=== PATIENT | female | born 1950 | race Caucasian/White ===

== ENCOUNTER → 2020-05-01 10:23 | Outpatient (CLI) | payer MEDICARE, SELFPAY ==
--- NOTE | ~2020-05-01 | XR_ITS ---
XR hand RT min 3V DATE: 05/01/2020 11:02 INDICATION: Right hand pain TECHNIQUE: 3 views COMPARISON: 07/14/2018 right hand FINDINGS: There is diffuse osteopenia. There is prominent osteoarthritic change at the triscaphe, first and second metacarpophalangeal joint s and particularly the interphalangeal joints of the first digit, distal interphalangeal joints of th e second and third digits, with lesser involvement at multiple additional interphalangeal joints. No fracture or dislocation, periosteal reaction or bone destruction is detected. IMPRESSION: Polyarticular osteoarthritis Reviewed, dictated and finalized at location A. [employer]
== END ==
PROVIDERS: PCP Family Medicine; Visit Provider Surgery Plastic and Reconstructive Surgery
DX: M19.041 Primary osteoarthritis, right hand (principal)
CPT/HCPCS: 73130

== ENCOUNTER → 2021-01-18 11:03 | Outpatient (CLI) | payer MEDICARE, SELFPAY ==
--- NOTE | ~2021-01-18 | XR_ITS ---
XR hand BI arthritis min 3V DATE: 01/18/2021 11:23 INDICATION: Rheumatoid arthritis TECHNIQUE: 4 views of each hand COMPARISON: 05/01/2020 right hand 05/13/2019 bilateral hands FINDINGS: Diffuse osteopenia. 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 There is osteoarthritic change at multiple joints including triscaphe, first, second and fifth metaca rpophalangeal and multiple interphalangeal joints, particularly at the interphalangeal joint of the f irst digit and distal interphalangeal joints of the second and third digits. There is focal erosion at the medial aspect of the head of the fifth metacarpal bone. No fracture or dislocation, periosteal reaction or bone destruction or chondrocalcinosis. Left hand: Diffuse osteopenia. There is osteoarthritic change at multiple joints, including triscaphe, particularly severe at the fi rst carpometacarpal joint, narrowing at the metacarpophalangeal joints and osteoarthritis at multiple interphalangeal joints, most severe at the second third distal interphalangeal joints. No fracture or dislocation, periosteal reaction or bone destruction. No erosive change is noted. IMPRESSION: Polyarticular osteoarthritis Focal erosion at the medial aspect of the and right fifth metacarpal 01/18/2021 Reviewed, dictated and finalized at location A.
== END ==
PROVIDERS: PCP Family Medicine; Visit Provider Internal Medicine
DX: M05.9 Rheumatoid arthritis with rheumatoid factor, unspecified (principal); M19.041 Primary osteoarthritis, right hand; M19.042 Primary osteoarthritis, left hand
CPT/HCPCS: 73130